=== PATIENT | male | born 1960 | race Caucasian/White ===

== ENCOUNTER 2018-06-14 13:39 | Emergency (ER) | payer SELFPAY ==
[2018-06-14] MEDS ORDERED: NS 500 ML IV ONE (14:10)
[2018-06-14] MEDS ORDERED: ASPIRIN 81 MG CHEWABLE TAB PO ONE (14:10)
--- NOTE | 2018-06-14 14:16 | EDPHY ---
H & P Time Seen by Provider: 06/14/18 14:01 HPI/ROS: HPI Chest pain. 58-year-old male by private vehicle with his . This patient reports that for the last week he has had intermittent chest pain, described as a tightness and squeezing sensation. He reports that he has had chest pains in the past for the last couple of years but usually they resolve quickly. He reports that over the last week his pain has been more persistent and more severe in nature. He describes it as mid substernal with some radiation up into the neck. He also reports having 2 very brief episodes of sharp chest pain with radiation up through the anterior neck this morning prior to arrival. He denies any previous history of coronary artery disease. He has had some shortness of breath associated with the pains. Nonsmoker. No history of diabetes, hyperlipidemia or hypertension. He denies significant family history. He is not obese. ROS: Constitutional: No fever, no chills. No weakness. Eyes: No discharge. No changes in vision. ENT: No sore throat. No nasal congestion or rhinorrhea. Respiratory: No cough. As above. Cardiac: As above, no palpitations. Gastrointestinal: No abdominal pain, no vomiting, no diarrhea. Genitourinary: No hematuria. No dysuria or increased frequency with urination. Musculoskeletal: No back pain. No neck pain. No myalgias or arthralgias. Skin: No rashes. Neurological: No headache. No focal weakness or altered sensation. Past medical history: Herpes simplex virus 1 and 2, lithotripsy, kidney stones , elbow surgery. He currently does not have a primary care physician. Social history: Occasional alcohol, here with his , nonsmoker. Denies IV drugs and street drugs. Physical Exam: General Appearance: Alert, no distress. This patient is responding to questions appropriately and in full sentences. This patient appears well- hydrated and well-nourished. Eyes: Pupils equal and round no pallor or injection. No lid edema, erythema or injection. Respiratory: There are no retractions, lungs are clear to auscultation with good air movement bilaterally. Cardiovascular: Regular rate and rhythm. No murmur. Gastrointestinal: Abdomen is soft and nontender, no masses, bowel sounds normal. No focal tenderness at McBurney's point. No Bonner sign. Neurological: Motor sensory function is grossly intact. Cranial nerves are normal. Gait is normal. Skin: Warm and dry, no rashes. Musculoskeletal: Neck is supple and nontender. Extremities are symmetrical. All joints range without pain or impingement. Psychiatric: No agitation. No depression. Database: EKG: EKG time is 1:56 p.m.; EKG shows a narrow complex normal sinus rhythm with a ventricular rate of 64. Probable left ventricular hypertrophy. The WA, QRS, QT intervals are within normal limits. There are no ST-T wave changes indicative of ischemic or injury pattern. No evidence of right heart strain. Interpreted by me. Imaging: Chest x-ray AP portable: The cardiac mediastinal silhouette is unremarkable. No acute cardiopulmonary disease process noted. Interpreted by me. Echocardiogram: Official read pending. Procedures: Emergency department course: Triage vital signs reviewed. He is moderately hypertensive. Vital signs are otherwise normal. He was given 324 mg of chewed aspirin. IV was placed. EKG obtained and reviewed by myself. Heart score on this patient is 2-3 which puts him in the low risk category. 3:30 p.m., patient re-evaluated. Resting comfortably at this time. No pain. Results of emergency department workup discussed with him and his . D- dimer still pending. I discussed admission for observation and further testing with him and his . At this time he does not want to be admitted. The patient competently engages in shared decision making. They demonstrate capacitance to make decisions. 4:00 p.m., patient re-evaluated. No pain. No complaints at this time. Remaining emergency department workup discussed with him and his . I discussed his heart score as above. I discussed the implications of this score and interpretation of it. He declines admission and is asking for discharge. I will have him follow up with Cardiology within the next 2-3 days. He will be given a referral to [facility]. His also has a tinter photograph and states that he can follow up with her tinter photograph as well. The patient is also aware that the results of his echocardiogram are currently pending. He elects to be discharged to home despite this. He will call in for the results of this and have his tinter photograph on follow-up review his echocardiogram report as well. Return to emergency department precautions were reviewed thoroughly with him and his . All of their questions were answered. He understands his follow- up. He was discharged in good condition. Differential Diagnosis: The differential diagnosis on this patient includes but is not limited to pleurisy, esophageal spasm, pulmonary embolism, acute coronary syndrome. This represents a partial list of diagnoses considered. These considerations are based on history, physical exam, past history, reassessment and diagnostic testing. Smoking Status: Never smoked Constitutional: Initial Vital Signs Temperature (C) 37.0 C 06/14/18 13:40 Heart Rate 72 06/14/18 13:40 Respiratory Rate 18 06/14/18 13:40 Blood Pressure 152/93 H 06/14/18 13:40 O2 Sat (%) 97 06/14/18 13:40 O2 Delivery Mode Room Air Allergies/Adverse Reactions: No Known Allergies Allergy (Unverified 06/14/18 13:45) Home Medications: Medication Instructions Recorded No Medications [NO HOME 0 ea MISC 10/25/11 MEDICATIONS] Acyclovir [Zovirax] 800 mg PO AD #35 tablet 11/20/13 HYDROcodone/HOMATROPINE HYCODA 1 - 2 tsp PO Q4-6PRN PRN #180 ml 11/20/13 [Hycodan Syrup (*)] Medical Decision Making - Diagnostics Imaging Results: Imaging Impressions Chest X-Ray 06/14/18 14:11 Impression: Normal. - Data Points Laboratory Results: Laboratory Results 06/14/18 14:00 06/14/18 14:00 06/14/18 06/14/18 06/14/18 14:48 14:25 14:00 WBC RBC Hgb Hct MCV MCH MCHC RDW Plt Count MPV Neut % (Auto) Lymph % (Auto) Fleming % (Auto) Eos % (Auto) Baso % (Auto) Nucleat RBC Rel Count Absolute Neuts (auto) Absolute Lymphs (auto) Absolute Monos (auto) Absolute Eos (auto) Absolute Basos (auto) Absolute Nucleated RBC Immature Gran % Immature Gran # PT 13.3 SEC SEC (12.0-15.0) INR 0.99 (0.83-1.16) APTT 28.8 SEC SEC (23.0-38.0) D-Dimer < 0.27 ug/mLFEU ug/mLFEU (0.00-0.50) Sodium 142 mEq/L mEq/L (135-145) Potassium 4.2 mEq/L mEq/L (3.3-5.0) Chloride 107 mEq/L mEq/L (97-110) Carbon Dioxide 25 mEq/l mEq/l (22-31) Anion Gap 10 mEq/L mEq/L (8-16) BUN 14 mg/dL mg/dL (7-23) Creatinine 0.8 mg/dL mg/dL (0.7-1.3) Estimated GFR > 60 Glucose 79 mg/dL mg/dL (70-100) Calcium 9.5 mg/dL mg/dL (8.5-10.4) POC Troponin I 0.01 ng/mL ng/mL (0.00-0.08) 06/14/18 06/14/18 14:00 14:00 WBC 11.46 10^3/uL H 10^3/uL (3.80-9.50) RBC 5.40 10^6/uL 10^6/uL (4.40-6.38) Hgb 16.1 g/dL g/dL (13.7-17.5) Hct 48.1 % % (40.0-51.0) MCV 89.1 fL fL (81.5-99.8) MCH 29.8 pg pg (27.9-34.1) MCHC 33.5 g/dL g/dL (32.4-36.7) RDW 13.5 % % (11.5-15.2) Plt Count 298 10^3/uL 10^3/uL (150-400) MPV 10.3 fL fL (8.7-11.7) Neut % (Auto) 73.7 % % (39.3-74.2) Lymph % (Auto) 18.0 % % (15.0-45.0) Fleming % (Auto) 5.7 % % (4.5-13.0) Eos % (Auto) 1.6 % % (0.6-7.6) Baso % (Auto) 0.7 % % (0.3-1.7) Nucleat RBC Rel Count 0.0 % % (0.0-0.2) Absolute Neuts (auto) 8.45 10^3/uL H 10^3/uL (1.70-6.50) Absolute Lymphs (auto) 2.06 10^3/uL 10^3/uL (1.00-3.00) Absolute Monos (auto) 0.65 10^3/uL 10^3/uL (0.30-0.80) Absolute Eos (auto) 0.18 10^3/uL 10^3/uL (0.03-0.40) Absolute Basos (auto) 0.08 10^3/uL 10^3/uL (0.02-0.10) Absolute Nucleated RBC 0.00 10^3/uL 10^3/uL (0-0.01) Immature Gran % 0.3 % % (0.0-1.1) Immature Gran # 0.04 10^3/uL 10^3/uL (0.00-0.10) PT REJ INR TNP APTT TNP D-Dimer TNP Sodium Potassium Chloride Carbon Dioxide Anion Gap BUN Creatinine Estimated GFR Glucose Calcium POC Troponin I Medications Given: Discontinued Medications Aspirin (Aspirin) 324 mg PO EDNOW ONE Stop: 06/14/18 14:11 Last Admin: 06/14/18 14:19 Dose: 324 mg Sodium Chloride (Ns) 500 mls @ 1,000 mls/hr IV EDNOW ONE PRN Reason: Protocol Stop: 06/14/18 14:39 Last Admin: 06/14/18 14:20 Dose: 500 mls Point of Care Test Results: Chemistry 06/14/18 14:25 POC Troponin I 0.01 ng/mL ng/mL (0.00-0.08) Departure - Departure Disposition: Home, Routine, Self-Care Clinical Impression: Chest pain Condition: Good Instructions: Chest Pain (ED) Additional Instructions: Read and follow provided instructions. Follow-up with your 's tinter photograph or the cardiology group I have provided you referral to within the next 2-3 days. You're echocardiogram interpretation is still pending at this time. This can be followed up on and interpreted for you by you're tinter photograph on follow-up. Take 81 mg of chewed aspirin daily. Return to the emergency department for return of chest pain, worsening chest pain, shortness of breath or other serious concerns. Referrals: Eugene Baig MD [Medical Doctor] - As per Instructions
[2018-06-14 14:26] LABS: PLATELET COUNT 298 10^3/uL (150-400)
--- NOTE | 2018-06-14 14:57 | CPEKG ---
Test Reason : OPEN Blood Pressure : / mmHG Vent. Rate : 064 BPM Atrial Rate : 062 BPM P-R Int : 130 ms QRS Dur : 109 ms QT Int : 421 ms P-R-T Axes : 039 023 033 degrees QTc Int : 435 ms Sinus rhythm Probable left ventricular hypertrophy Confirmed by Nasima Connors ([id number]) on 06/14/2018 2:56:36 PM Referred By: Confirmed By:Nasima Connors
[2018-06-14 15:33] LABS: INR 0.99 (0.83-1.16); PROTIME(PATIENT) 13.3 SEC (12.0-15.0)
[2018-06-14 16:12] VITALS: BP 168/98
--- NOTE | 2018-06-14 16:17 | ECHO ---
[email or web address] [address] [address] Main: [phone] Fax: Transthoracic Echocardiogram Name: MAGALI ISLAS MR#: [id number] Study Date: 06/14/2018 Study Time: 02:41 PM Date of : 1960 Age: 58 year(s) Height: 177.8 cm (70 in.) Weight: 73.48 kg (162 lb.) BSA: 1.91 m2 Gender: Male Examination: Echo Indication: Chest Pain Image Quality: Contrast: Requested by: Sarita Gongora BP: 128 mmHg/87 mmHg Heart Rate: Rhythm: Indication: Chest Pain Procedure Staff [employer] Specialist: Abad Goel RDCS Reading Physician: Alcides Sheth MD Requesting Provider: Conclusions: Normal study Measurements: Chambers Valvular Assessment AV/MV Valvular Assessment TV/PV Normal Normal Normal Name Value Range Name Value Range Name Value Range Ao Demi (MM): 3.0 cm (2.2 cm-3.7 AV Vmax: 1.19 m/s (1 m/s-1.7 PV Vmax: 0.71 m/s (0.6 m/s-0.9 cm) m/s) m/s) IVSd (2D): 1.0 cm (0.6 cm-1.1 AV maxP mmHg ( - ) PV PGmax: 2 mmHg ( - ) cm) LVOT Vmax: 0.74 m/s (0.7 m/s-1.1 LVDd (2D): 5.0 cm (4.2 cm-5.9 m/s) cm) MV E Vmax: 0.60 m/s ( - ) LVDs (2D): 3.3 cm (2.1 cm-4 MV A Vmax: 0.45 m/s ( - ) cm) MV E/A: 1.33 ( - ) LVPWd (2D): 1.0 cm (0.6 cm-1 cm) LVEF (2D): 62 (>=54 %) Continued Measurements: Chambers Valvular Assessment AV/MV Name Value Name Value LADs Lon.4 cm MV E/E' Septal: 14.00 LA Area: 17.2 cm2 MV E/E' Lateral: 6.90 Findings: Left Ventricle: Normal size left ventricle. No LV hypertrophy. Normal global systolic LV function. EF is 62 %. No regional wall motion abnormality. Diastolic dysfunction is present. . Patient: MAGALI ISLAS Study Date: 06/14/2018 Page 1 of 2 02:41 PM Right Ventricle: Normal size right ventricle. Left Atrium: The left atrium is normal in size. Right Atrium: The right atrium is normal in size. Mitral Valve: The mitral valve is normal in appearance and function. Trivial mitral valve regurgitation. Aortic Valve: The aortic valve is normal in appearance and function. Tricuspid Valve: The tricuspid valve is normal in appearance and function. Pulmonic Valve: The pulmonic valve is normal in appearance and function. Aorta: The aorta is normal. Pericardium: No pericardial effusion. (No Signature Object) Patient: MAGALI ISLAS Study Date: 06/14/2018 Page 2 of 2 02:41 PM [id number]
== END 2018-06-14 16:22 | disposition home or self-care (01) ==
DX: R07.9 Chest pain, unspecified (principal)
CPT/HCPCS: 84484-PO